=== PATIENT | male | born 1960 | race Native Hawaiian/Other Pacific Islander ===

== ENCOUNTER 2022-06-30 09:04 | Outpatient (CLI) | payer OTHER | END 2022-06-30 17:00 | disposition home or self-care (01) | LOC: RESP 09:04 | PROVIDERS: ATTEND Internal Medicine Cardiovascular Disease | DX: R07.89 Other chest pain (principal); I10 Essential (primary) hypertension ==

== ENCOUNTER 2022-06-30 09:06 | Outpatient (CLI) | payer OTHER | END 2022-06-30 17:00 | disposition home or self-care (01) | LOC: CT 09:06 | PROVIDERS: ATTEND Internal Medicine Cardiovascular Disease | DX: R07.89 Other chest pain (principal); I10 Essential (primary) hypertension; Z13.6 Encounter for screening for cardiovascular disorders ==